=== PATIENT | male | born 1975 | race Caucasian/White ===

== ENCOUNTER 2023-01-02 03:20 | Emergency (ER) | payer MEDICAID ==
[~2023-01-02] VITALS: Ht 180.3 cm; Wt 90.7 kg
[2023-01-02 03:31] VITALS: BP 143/99
[2023-01-02] MEDS ORDERED: methocarbamoL 500 MG TAB PO STA (04:09)
[2023-01-02] MEDS ORDERED: predniSONE 20 MG TAB PO ONE (04:10)
[2023-01-02] MEDS ORDERED: KETOROLAC 15 MG/ML VIAL IM ONE (04:10)
[2023-01-02] MEDS ORDERED: LIDOCAINE 5% 1 EA PATCH TP ONE (04:10)
[2023-01-02] MEDS ORDERED: IBUP-2213 PO (04:17)
[2023-01-02] MEDS ORDERED: METH-1681 PO (04:17)
[2023-01-02] MEDS ORDERED: LID5T TP (04:17)
[2023-01-02] MEDS ORDERED: PRED20TA5 PO (04:17)
[2023-01-02 04:42] VITALS: BP 143/99
--- NOTE | 2023-01-02 04:43 | NUR ---
Patient discharged with v/s stable. Written and verbal after care instructions given and explained. New rx ibuprofen, lidocaine patch, robaxin, prednisone. Patient verbalized understanding. Ambulatory with to car. All questions addressed prior to discharge. Advised to follow up with PMD.
== END 2023-01-02 04:42 | disposition home or self-care (01) ==
LOC: MED 03:20
DX: M54.17 Radiculopathy, lumbosacral region (principal); Z79.899 Other long term (current) drug therapy
CPT/HCPCS: 96372; 99284; J1885; J7512

== ENCOUNTER 2024-06-07 15:30 | Emergency (ER) | payer MEDICAID ==
[~2024-06-07] VITALS: Ht 180.3 cm; Wt 81.6 kg
[~2024-06-07 15:30] MED LIST: IBUP-2213 PO; LID5T TP; METH-1681 PO; PRED20TA5 PO
[2024-06-07 15:43] VITALS: BP 141/98; RESP 18; TEMP 97.9
[2024-06-07] MEDS ORDERED: LOTC TP (16:05)
== END 2024-06-07 16:10 | disposition home or self-care (01) ==
LOC: MED 15:30
DX: B35.3 Tinea pedis (principal); Z98.890 Other specified postprocedural states; Z79.899 Other long term (current) drug therapy; Z91.018 Allergy to other foods
CPT/HCPCS: 99282